=== PATIENT | male | born 1960 | race Caucasian/White ===

== ENCOUNTER 2023-08-27 15:06 | Emergency (ER) | payer BC, SELFPAY ==
[2023-08-27 15:10] VITALS: BP 145/91
--- NOTE | 2023-08-27 15:57 | ED.GENMED ---
History of Present Illness
General
Chief Complaint: Swelling
Source: patient and spouse
Exam Limitations: none
Time Seen by Provider: 08/27/23 15:35
Nursing documentation reviewed up to this point in time: agreed with
Travel History
Have you had any contact with someone who has COVID-19?: No
Do you have any symptoms of coronavirus? Fever > 100 degrees, chills, cough, shortness of breath, sore throat, loss of taste or smell, muscle aches, or headache?: No
History of Present Illness
History of Present Illness:
62-year-old male with past medical history of DVT/PE who presents to the emergency room for evaluation of left knee swelling. Patient reports that he just took a trip to [place] and returned on Tuesday�he says that he was in the car for
about [address] hours for the return drive on Tuesday. During his trip to [place] he says that he was doing heavy amount of cycling�he says that he went for a very long bike ride almost every day that he was there for about 2 weeks. He says that
while he was cycling he noted that his right knee did not quite feel right but he did not recall any specific trauma or injury. He says that since he has returned home once that he noticed that he has had some swelling in the right knee. He was
concerned because he has a history of significant DVT and PE�he thought that it could be related to a blood clot given his recent long car ride. Decided to come to the emergency room for assessment. He has not had any redness of the leg. He has
not had any fevers or chills. He denies any other issues.
Review of Systems
Review of Systems
All Other Systems: ROS reviewed and negative except as documented in HPI and ROS
Constitutional: Denies fever or chills
Respiratory: Denies trouble breathing
Cardiac: Denies chest pain
Musculoskeletal: Reports joint pain and joint swelling
Skin: Denies rash
Phy Exam
Physical Exam
Physical Exam:
General: Awake, alert, oriented x3; no acute distress
Head: Normocephalic, atraumatic
Eyes: Conjunctiva normal
Throat: Airway intact, handling secretions
Neck: Trachea midline
Lungs: Breathing comfortably not in distress
Heart: Regular rate
Neuro: No gross deficits
Skin: no rash
Extremities: Patient has no edema in his extremities; he has no skin changes or erythema of the right lower leg or knee; on exam of the right knee he has a joint effusion; he has no joint line tenderness, no pain with manipulation of the patella; he
is able to move the right knee through active range of motion with really no discomfort, slightly limited on extreme of flexion due to the effusion; has a good strong right PT and DP pulse and good brisk capillary refill distally
Scores
Heart Failure Risk
Heart Failure Risk Score: Not Applicable
Heart Score for Chest Pain Patients
STEMI patient?: Not applicable
Withdrawal Assessment of Alcohol
Withdrawal Assessment Completed?: Not applicable
Course
Orders/Labs/Results
Orders:
Orders
08/27/23 15:22
US Periph Venous LOWER Ext RT Urgent
Comment: h/o DVT/PE
Reason For Exam: swelling and pain
08/27/23 15:56
CR Knee - Left 4 Or More View* Urgent
Comment:
Reason For Exam: left knee pain
Vital Signs
Initial and Last Documented VS:
Initial Vital Signs
Temp Pulse Resp BP Pulse Ox
36.8 C 61 18 145/91 97
08/27/23 15:10 08/27/23 15:10 08/27/23 15:10 08/27/23 15:10 08/27/23 15:10
Last Documented Vital Signs
Temp Pulse Resp BP Pulse Ox
36.8 C 61 18 145/91 97
08/27/23 15:10 08/27/23 15:10 08/27/23 15:10 08/27/23 15:10 08/27/23 15:10
MDM/Problems Addressed
Differential Diagnosis Includes:
Osteoarthritis, ligamentous injury, sprain; very low clinical suspicion for gout or septic arthritis; much lower suspicion for DVT
MDM/Problems Addressed:
62-year-old male presents for evaluation of some swelling and slight pain in the right knee after a vacation on which he was doing very heavy cycling. He was concerned that potentially symptoms could be from a DVT as he has a history of significant
DVT in the setting of right Achilles surgery and is no longer on anticoagulation. Came to the emergency room for assessment. Vital signs and exam as above. Swelling is really related to a joint effusion and thus very low clinical suspicion for
DVT but this is patient's per presenting concern and so in an abundance of caution we will perform a right lower extremity ultrasound to rule out DVT. Will also check an x-ray of the knee. I suspect more likely that this is related to joint
effusion from osteoarthritis in the setting of heavy cycling recently. He has nothing on exam to suggest gouty arthritis or septic arthritis�there is no fever, no erythema and minimal to no tenderness on range of motion of the knee. I did speak to
the patient about potentially performing arthrocentesis here which could be definitively diagnostic as well as potentially therapeutic patient is to forego this procedure at this time and I think this is reasonable as my suspicion for emergent
pathology such as a septic joint is extremely low.
*Radiology
Radiology exam reviewed: preliminary read by ED provider and radiology read reviewed
*Pulse Oximetry
Patient hypoxic: no
*Critical Care Note
Total Time (30-74mins, 75-104mins- exclusive of procedures): Not Applicable
Data Reviewed
Source: patient and spouse
ED Attending Note
-
Portions of this chart may have been created with voice recognition software.� Occasional wrong word or��sound alike� substitutions may have occurred due to the inherent limitations of voice recognition software.
Discharge Plan
Interventions
Interventions:
*ED COVID-19 Vaccine History Last Done: 08/27/23 15:10
Discharge Date and Time
Print Language: GREENLAND[place]
== END 2023-08-27 17:27 | disposition home or self-care (01) ==
LOC: EMR 15:06
PROVIDERS: EMERGENCY PHYSICIAN Emergency Medicine
DX: M25.461 Effusion, right knee (principal); M79.604 Pain in right leg; M17.11 Unilateral primary osteoarthritis, right knee; Z86.718 Personal history of other venous thrombosis and embolism; Z86.711 Personal history of pulmonary embolism
CPT/HCPCS: 99284; 73564; 93971